=== PATIENT | male | born 1955 | race Caucasian/White ===

== ENCOUNTER 2019-10-21 00:11 | Inpatient (IN) | payer OTHER ==
[~2019-10-21] VITALS: Ht 185.4 cm; Wt 110.8 kg
[2019-10-21] VITALS (8 sets, daily range): BP systolic 118–169; BP diastolic 71–79; O2SAT 97
[2019-10-21] MEDS ORDERED: ACETAMINOPHEN TAB 650MG DOSE (2X325MG) PO PRN (01:15)
[2019-10-21] MEDS ORDERED: MORPHINE 2 MG/ML 1ML VIAL (J2270) IV PRN (01:15)
[2019-10-21] MEDS ORDERED: ONDANSETRON 4MG/2ML VIAL IV PRN ×2 (01:15→20:00)
[2019-10-21] MEDS ORDERED: KETOROLAC 30 MG/ML 1ML VIAL IV PRN ×2 (01:15→02:30)
[2019-10-21] MEDS ORDERED: NORCO, ANEXSIA 5/325MG TABLET (HYDROcodone/ACETAMINOPHEN) PO PRN (01:15)
[2019-10-21] MEDS ORDERED: CHAN1PAK11 PO (01:59)
[2019-10-21] MEDS ORDERED: HYDR-3363 PO (01:59)
[2019-10-21] MEDS ORDERED: ATOR40TA75 PO (02:04)
[2019-10-21] MEDS ORDERED: GEMF600T5 PO (02:04)
[2019-10-21] MEDS ORDERED: OMEP1CAP73 PO (02:04)
[2019-10-21] MEDS ORDERED: MIRA0.5T PO (02:04)
[2019-10-21] MEDS ORDERED: MORPHINE 4 MG/ML 1ML VIAL/SYRINGE (J2270) IV PRN (03:15)
[2019-10-21] MEDS: LR 1,000 ML IV SCH ×2 (03:36→09:44)
[2019-10-21] MEDS: PIPERACILLIN/TAZOBACTAM SOD 3.375 GM in D5W MINI-BAG PLUS 50 ML IV SCH ×3 (06:42→17:35)
[2019-10-21] MEDS: PANTOPRAZOLE 40MG VIAL (C9113 PER 1) IV SCH (07:54)
[2019-10-21 09:21] LABS: BASO % 0.2 % (0.0-1.0); EOS # 0.1 10^3/uL (0.0-0.5); EOS % 0.9 % (0.0-3.0); HEMATOCRIT 38.7 % (42.0-52.0); LYMPH # 1.5 10^3/uL (1.5-5.0); LYMPH % 11.7 % (24.0-44.0); MEAN CORPUSCULAR HGB CONC 33.6 g/dl (32.0-36.5); MEAN CORPUSCULAR VOLUME 89.2 fl (80.0-96.0); MONO % 7.7 % (0.0-5.0); NEUTROPHILS # 10.2 10^3/uL (1.5-8.5); NEUTROPHILS % 79.2 % (36.0-66.0); PLATELET COUNT, AUTOMATED 179 10^3/uL (150-450); RED BLOOD COUNT 4.34 10^6/uL (4.30-6.10); WHITE BLOOD COUNT 12.8 10^3/uL (4.0-10.0)
[2019-10-21 10:04] LABS: ALBUMIN 3.2 GM/DL (3.2-5.2); ALT/SGPT 18 U/L (12-78); BILIRUBIN,TOTAL 0.7 MG/DL (0.2-1.0); BLOOD UREA NITROGEN 13 MG/DL (7-18); CALCIUM LEVEL 8.7 MG/DL (8.8-10.2); CARBON DIOXIDE LEVEL 29 MEQ/L (21-32); CHLORIDE LEVEL 106 MEQ/L (98-107); CREATININE FOR GFR 1.05 MG/DL (0.70-1.30); GLOMERULAR FILTRATION RATE > 60.0 (>49); GLUCOSE, FASTING 96 MG/DL (70-100); POTASSIUM SERUM 4.3 MEQ/L (3.5-5.1); SODIUM LEVEL 139 MEQ/L (136-145); TOTAL PROTEIN 6.2 GM/DL (6.4-8.2)
[2019-10-21] MEDS ORDERED: BUPIVACAINE HCL 0.25% 30ML VIAL As Ordered ONE (16:00)
[2019-10-21] MEDS ORDERED: MIDAZOLAM INJ 2MG/2ML VIAL (J2250 PER 1MG) As Ordered ONE (16:20)
[2019-10-21] MEDS ORDERED: fentaNYL 100 MCG/2 ML INJECTION (J3010) As Ordered ONE (16:22)
[2019-10-21] MEDS ORDERED: ROCURONIUM BROMIDE 50 MG/5 ML VIAL As Ordered ONE ×2 (16:23→17:40)
[2019-10-21] MEDS ORDERED: dexameTHASONE 4 MG/ML 1ML VIAL (J1100 PER 1MG) As Ordered ONE (16:25)
[2019-10-21] MEDS ORDERED: propofoL 200 MG/20 ML VIAL As Ordered ONE ×2 (17:17→18:44)
[2019-10-21] MEDS ORDERED: METOCLOPRAMIDE INJ 10MG/2ML VIAL (J2765 PER 1) As Ordered ONE (17:17)
[2019-10-21] MEDS ORDERED: ZOSYN 3.375GM VIAL (J2543) As Ordered ONE (17:22)
[2019-10-21] MEDS ORDERED: ePHEDrine SULFATE 25 MG/5 ML(5MG/ML) SYRINGE As Ordered ONE (17:28)
[2019-10-21] MEDS ORDERED: PHENYLephrine HCL 500 MCG/5 ML (100MCG/ML) SYRINGE (J2370) As Ordered ONE (17:28)
[2019-10-21] MEDS ORDERED: GLYCOPYRROLATE INJ 0.2 MG/ML 2 ML VIAL As Ordered ONE (17:37)
[2019-10-21] MEDS ORDERED: SUGAMMADEX SODIUM 500 MG/5 ML VIAL (BRIDION) As Ordered ONE (17:40)
[2019-10-21] MEDS ORDERED: HYDROmorphone HCL 2 MG/ML 1ML VIAL (J1170) As Ordered ONE (17:41)
[2019-10-21] MEDS ORDERED: KETOROLAC 60MG 2ML VIAL As Ordered ONE (18:18)
[2019-10-21] MEDS ORDERED: ACETAMINOPHEN 1000MG 100ML IV BTL (OFIRMEV) (J0131 PER 10MG) As Ordered ONE (18:40)
[2019-10-21] MEDS ORDERED: METOCLOPRAMIDE INJ 10MG/2ML VIAL (J2765 PER 1) IV PRN (20:00)
[2019-10-21] MEDS ORDERED: PERCOCET 5MG/325MG TAB PO PRN (20:00)
[2019-10-21] MEDS ORDERED: LR 1,000 ML IV SCH (20:00)
[2019-10-21] MEDS ORDERED: fentaNYL 100 MCG/2 ML INJECTION (J3010) IV PRN (20:00)
[2019-10-21] MEDS ORDERED: PRAMIPEXOLE 0.25 MG TAB PO SCH (21:00)
[2019-10-22] VITALS: BP 119/59
[2019-10-22] MEDS: PIPERACILLIN/TAZOBACTAM SOD 3.375 GM in D5W MINI-BAG PLUS 50 ML IV SCH ×3 (00:16→12:02)
[2019-10-22 01:27] VITALS: BP 118/59
[2019-10-22 06:00] VITALS: BP 134/89
[2019-10-22 07:40] LABS: BASO % 0.1 % (0.0-1.0); EOS # 0.1 10^3/uL (0.0-0.5); EOS % 0.5 % (0.0-3.0); HEMATOCRIT 33.9 % (42.0-52.0); HEMOGLOBIN 11.4 g/dl (13.5-17.5); LYMPH # 1.6 10^3/uL (1.5-5.0); LYMPH % 14.2 % (24.0-44.0); MEAN CORPUSCULAR HEMOGLOBIN 29.9 pg (27.0-33.0); MEAN CORPUSCULAR HGB CONC 33.6 g/dl (32.0-36.5); MONO # 0.7 10^3/uL (0.0-0.8); MONO % 6.4 % (0.0-5.0); NEUTROPHILS % 78.4 % (36.0-66.0); PLATELET COUNT, AUTOMATED 165 10^3/uL (150-450); RED BLOOD COUNT 3.81 10^6/uL (4.30-6.10); WHITE BLOOD COUNT 11.5 10^3/uL (4.0-10.0)
[2019-10-22 08:15] LABS: ALBUMIN 2.8 GM/DL (3.2-5.2); ALT/SGPT 36 U/L (12-78); BILIRUBIN,TOTAL 0.5 MG/DL (0.2-1.0); BLOOD UREA NITROGEN 17 MG/DL (7-18); CALCIUM LEVEL 8.3 MG/DL (8.8-10.2); CARBON DIOXIDE LEVEL 26 MEQ/L (21-32); CHLORIDE LEVEL 107 MEQ/L (98-107); CREATININE FOR GFR 1.15 MG/DL (0.70-1.30); GLOMERULAR FILTRATION RATE > 60.0 (>49); GLUCOSE, FASTING 106 MG/DL (70-100); POTASSIUM SERUM 4.1 MEQ/L (3.5-5.1); SODIUM LEVEL 141 MEQ/L (136-145); TOTAL PROTEIN 5.6 GM/DL (6.4-8.2)
[2019-10-22] MEDS: PANTOPRAZOLE 40MG VIAL (C9113 PER 1) IV SCH (08:29)
[2019-10-22 09:00] VITALS: O2SAT 98
[2019-10-22] MEDS ORDERED: ATORVASTATIN 20 MG TAB PO SCH (09:00)
[2019-10-22 10:00] VITALS: BP 141/80
[2019-10-22 14:00] VITALS: BP 141/78
--- NOTE | 2019-11-15 17:16 | ECGEPIP ---
[facility] Test Date: 2019-10-21 Pat Name: POLLO JOHNSON Department: Room: [place] [address] Gender: Male Express Manager: AMOS : 1955 Requested By: Mohit Mullins Order Number: [id number] Reading MD: Bev Taylor Measurements Intervals [place] Rate: 63 P: 43 GA: 130 QRS: -9 QRSD: 102 T: 6 QT: 411 QTc: 423 Interpretive Statements SINUS RHYTHM CANNOT R/O OLD IWMI SEE SCANNED DOWNTIME REPORT.
--- NOTE | 2019-12-02 09:42 | HPE ---
DATE OF ADMISSION: 10/21/2019 ADMITTING DIAGNOSIS: Cholelithiasis with acute cholecystitis. HISTORY OF PRESENT ILLNESS: The patient is a 64-year-old man who reports that about 5 weeks or so ago he had an episode of mid upper abdominal pain which lasted for perhaps a few hours and then remitted. On 10/19/2019, at about 1 oclock in the afternoon, he noted the onset of upper abdominal pain. This was fairly diffuse but clearly in the upper abdomen. He was seen at [facility] where he reportedly underwent evaluation with some laboratory studies and he reports that he had some form of a CT scan. He was subsequently discharged home. The pain seemed to remit somewhat on the evening of 10/19/2019, but then returned on 10/20/2019 and became even more severe. He denies any nausea or vomiting or fevers or chills. The pain just became very severe. He was seen again at [facility] where he had presented at just about 7 p.m. on 10/20/2019. He was found to have some tenderness in the right upper quadrant with some guarding. Laboratory studies revealed a mild elevation of the white count to almost 15,000. Liver function tests were normal. He had a CT scan which revealed cholelithiasis with a suggestion of a stone in the cystic duct with some gallbladder wall thickening, all felt to be consistent with acute cholecystitis. The patient was transferred to [facility] for care. ALLERGIES: Patient denies any known drug allergies. MEDICATIONS: Include: - atorvastatin 40 mg by mouth daily - gemfibrozil 600 mg twice a day - omeprazole 20 mg daily - pramipexole 0.5 mg tablets and he takes 1-4 tablets daily at bedtime as needed for his restless leg syndrome SURGICAL HISTORY: Is reportedly entirely negative. MEDICAL HISTORY: He has a history of hypercholesterolemia, restless leg syndrome, and gastroesophageal reflux. FAMILY HISTORY: Is noncontributory. SOCIAL HISTORY: He does smoke slightly less than one pack of cigarettes per day. He drinks alcohol socially. REVIEW OF SYSTEMS: Reveals no history of chest pain or palpitations. He denies cough, wheezing, or sputum production. He denies any urinary symptoms. He has had no melena or hematochezia. He denies diarrhea or constipation. He does report having had a colonoscopy, he thinks it was last year as a screening test. He denies any significant bone or joint issues. He denies deep venous thrombosis (DVT) or pulmonary embolus. He has had no history of seizure or stroke. PHYSICAL EXAMINATION: The patient, on presentation at [facility], has a temperature of 99 degrees with a pulse of 66, respirations of 18, and a blood pressure of 169/77. He is alert and oriented. Skin is warm and dry. Sclerae are anicteric. Mucous membranes are moist. The neck is supple without cervical bruit. Heart exam shows a regular rhythm of about 70. Lungs are clear to auscultation. The abdomen is mildly obese. He has bowel sounds present. There is no tympany to percussion. There is no significant tenderness to percussion. On palpation, he does have some guarding in the right upper quadrant with some mild to moderate direct tenderness in the subcostal area. The remainder of the abdomen is soft and nontender. There is no palpable mass. Extremities are without edema and he has palpable radial and pedal pulses bilaterally. LABORATORY STUDIES: Include a respiratory panel which does not seem to include a COVID-19. He had a CBC with a differential that showed a white count of 15, hemoglobin 14, hematocrit 41, and a platelet count of 226,000. Differential count showed 79% neutrophils, 14% lymphocytes, and 6% monocytes. His PT and INR were normal as was his PTT. Chemistry profile showed normal electrolytes with a BUN of 13, creatinine 1.2, and a glucose of 115. Liver function tests are normal with a lipase that is normal as well at 162. Lactic acid was normal at 1.3. Urinalysis was not suggestive of a urinary tract infection. CT scan reportedly shows some thickening of the gallbladder wall with gallstones free in the gallbladder lumen and also a stone that appears to be in the cystic duct. IMPRESSION: Patient is a 64-year-old man with a history of one prior episode of pain and now 2 days of waxing and waning but now persistent right upper quadrant pain. He has gallstones and gallbladder wall thickening by CT. White count is elevated but the liver function tests (LFTs) are normal. His findings are all consistent with cholelithiasis with acute cholecystitis. Other diagnoses include hyperlipidemia, restless leg syndrome, and gastroesophageal reflux disease. PLAN: Patient has been admitted to [facility] and started on Zosyn. He received one dose at [facility] and this will be continued for antibiotic coverage. We will need to obtain a COVID-19 screen. I will recheck his labs first thing in the morning. The patient will require a cholecystectomy. He was counseled that this is the appropriate treatment for acute cholecystitis. I do not believe he will benefit from a nuclear scan to confirm cystic duct occlusion. I will need to find time in the operating room (OR) schedule to perform the surgery. In the interim, he will be kept nothing by mouth on some IV fluids and we will provide analgesics as necessary. AMRIK
--- NOTE | 2019-12-06 11:34 | IPN ---
DATE: 10/22/2019 HISTORY OF PRESENT ILLNESS: Patient was admitted yesterday with a diagnosis of cholelithiasis with acute cholecystitis. Yesterday evening, he underwent a laparoscopic cholecystectomy. There was some bleeding from a branch of the cholecystic artery, which was controlled with a blood loss of perhaps 300 cc estimated. He otherwise did well. The gallbladder was clearly quite inflamed. PHYSICAL EXAMINATION: VITAL SIGNS: Patient has remained afebrile since his surgery. Pulse remains in the 50s and sometimes up into the 60s. Blood pressure is good. His room air oxygen saturation is normal. INTAKE & OUTPUT: Patient has been advanced to a regular diet and he has taken the diet well. He is voiding without difficulty, though the amounts are not generally being measured. The patient was very eager for discharge and was becoming more aggravated. I was contacted by phone by nursing and my partner, Dr. Campoverde, saw the patient in his room for me. Dr. Campoverde reported that the patient looked good with his incisions appearing clean and dry. He was comfortable with no pain medication. Dr. Campoverde assisted by putting in some preliminary discharge papers. I then spoke with the nurse who has been caring for the patient, and discharged him. LABORATORY DATA: He did have follow-up labs this morning, showing white count 12, hemoglobin 11, hematocrit 34 with a differential count showing 78% neutrophils and 14% lymphocytes. Chemistries showed normal set of electrolytes with glucose of 106 and his liver function tests were normal. IMPRESSION: Patient is doing very well following his laparoscopic cholecystectomy for acute cholecystitis. PLAN: Patient will be discharged home. He will follow-up in the office in approximately two weeks. He can take [id number] pain medicines as necessary. He can shower 24 hours after the surgery, but should leave his Steri- Strips in place for a week if able. He should call the office for any problems. AMRIK
--- NOTE | 2019-12-31 07:11 | RO ---
DATE OF OPERATION: 10/21/2019 PREOPERATIVE DIAGNOSIS: Cholelithiasis with acute cholecystitis. POSTOPERATIVE DIAGNOSIS: Marked acute cholecystitis with cholelithiasis PROCEDURE PERFORMED: Laparoscopic cholecystectomy SURGEON: Shamar Watson MD ANESTHESIA: General. INDICATIONS FOR THE PROCEDURE: The patient is a 64-year-old man who reported the onset of some upper abdominal pain on October 18. The patient was seen at [facility] but discharged home. His pain remitted, but then returned on October 19 and became more severe. He was again seen at [facility] and found to have tenderness in the right upper quadrant with guarding. He was noted to have an elevated white blood cell count. CT scan showed cholelithiasis with gallbladder wall thickening. He was transferred to [facility] for care. His history, examination and imaging findings were all felt to be consistent with acute cholecystitis. He was started on Zosyn for antibiotic coverage and he is now for a laparoscopic. OPERATIVE PROCEDURE: The patient was brought to the operating room and placed on the table in the supine position. He was placed under general endotracheal anesthesia. The patient's abdomen was prepped and draped in a sterile fashion. 25% Marcaine was infiltrated at each of the trocar sites as needed. Initially, a short transverse incision was made in the patients left upper quadrant. A Veress needle was inserted; and after a positive hanging drop test, the abdomen was inflated with carbon dioxide gas. A 5 mm scope was placed through a 5 mm port and this was advanced through the abdominal wall without difficulty. Initial examination showed significant inflammation in the subhepatic space. There was omentum adherent up around a markedly inflamed and extended gallbladder. An 11 mm port was placed through the supraumbilical site and two 5 mm right upper quadrant ports were placed. The patient was tilted to a reverse Trendelenburg position and rolled slightly to the left. Graspers were inserted and the omentum was peeled away from the distended gallbladder. The gallbladder was so tense that it was impossible to grasp this, so the gallbladder was aspirated with an aspirating needle. A large amount of turbid colorless fluid was removed and the gallbladder decompressed nicely. The gallbladder was then grasped and elevated. Dissection was begun near the gallbladder neck. The peritoneum was opened using the hook cautery. Dissection was then carried through the markedly inflamed and edematous pericholecystic tissues around the gallbladder neck. In the course of dissection, the cystic duct was clearly identified. The cholecystic artery was also identified. The cholecystic artery was doubly clipped with hemoclips and divided. The cystic duct was doubly clipped with hemoclips and divided as well. The gallbladder was then dissected free from the gallbladder bed. This proved to be quite a difficult dissection partly due to the thickening of the gallbladder which made mobilization difficulty, but also due to edema and scarring of the wall of the gallbladder. In the course of dissection, it was apparent there was a small branch of the cholecystic artery more lateral. It was difficult to expose this initially and this required further dissection of the gallbladder. Once the gallbladder could be moved adequately out of the way, it was possible to identify the bleeding point and this was controlled with hemoclips and some cautery at the edge of the gallbladder fossa. The gallbladder was then completely dissected from the gallbladder bed at the fundus. This was placed in an Endopouch. The right upper quadrant was then copiously irrigated and the spilled blood was removed. I would estimate approximately 300 cc of blood loss. Final inspection showed no evidence of bleeding or bowel leak. The patient was returned to a flat position. The abdomen was deflated and the trocars were removed. The gallbladder was recovered through the supraumbilical site, which required extending the incision somewhat to allow passage of the inflamed gallbladder and contained stones. The gallbladder was sent for permanent pathology. The fascia at the supraumbilical site was closed with interrupted simple sutures of 2-0 Vicryl. The skin incisions were all closed with buried 4-0 Vicryl and Steri- Strips. Light dressings were applied. The patient tolerated the procedure well without apparent complications. He was awakened in the operating room, extubated and moved to the recovery room in stable condition. AMRIK
== END 2019-10-22 16:27 | disposition home or self-care (01) | DRG 263 ==
LOC: M MS5PR 01:37
PROVIDERS: ADMIT Surgery; ATTEND Surgery
PROC: 0FT44ZZ Resection of Gallbladder, Percutaneous Endoscopic Approach (ICD-10-PCS; principal; 2019-10-21 08:45)
DX: K80.00 Calculus of gallbladder with acute cholecystitis without obstruction (principal); F17.210 Nicotine dependence, cigarettes, uncomplicated; G25.81 Restless legs syndrome; K21.9 Gastro-esophageal reflux disease without esophagitis; E78.00 Pure hypercholesterolemia, unspecified; Z79.899 Other long term (current) drug therapy